=== PATIENT | female | born 1935 | race Caucasian/White ===

== ENCOUNTER 2016-05-03 19:31 | Emergency (ER) | payer OTHER ==
[~2016-05-03] VITALS: Ht 139.7 cm; Wt 78.1 kg
[~2016-05-03 19:31] MED LIST: ACCOLATE PO; ACETAMINOPHEN-1 EAC1 PO; ACETAMINOPHEN325 M1 PO; ACID REDUCER; ACID REDUCER75 MG PO; ADULT LOW DOSE81 M1 PO; ADVAIR 100/501 DISK IH; ADVAIR 250/501 DISK IH; ADVAIR 500/501 DISK IH; ADVIL,NUPRIN,M200 MG PO; ALBUTEROL0.63 MG/3 IH; ALPRAZOLAM0.5 MG PO; ALPRAZOLAM1 MG PO; AMERGE2.5 MG PO; AMOXICILLIN125 MG; ANALGESIC325 MG PO; ANTIBIOTIC PO; ANTIVERT25 MG PO; ARTIFICIAL TEAR15 M1 BOTH EYES; ASACOL400 MG PO; ASCORBIC ACID250 MG PO; ASPIR 8181 M1 PO; ASPIR-LOW81 M1 PO; ASPIR-LOW81 MG PO; ASPIR-TRIN325 M1 PO; ASPIRIN E.C.81 M1 PO; ASPIRIN325 MG PO; ASPIRIN81 M2 PO; ATORVASTATIN CA40 MG PO; AUGMENTIN875 MG PO; Advair 250/50 Diskus IH; Advair HFA 115/21 IH; Antivert PO; Aspirin PO; BACLOFEN10 MG PO; BACTRIM,SEPT1 TABLET PO; BACTROBAN CREAM15 GM TP; BENADRYL25 MG PO; BENTYL10 MG PO; BISACODYL SUPP10 MG PR; BISACODYL5 MG PO; Benadryl PO; CALCIUM + D; CALCIUM + VITA1 EACH PO; CALCIUM 500 +1 EACH PO; CALCIUM 600 +1 EA10 PO; CALCIUM 600 +1 EA15 PO; CALCIUM 600 +1 EAC1 PO; CALCIUM 600 +1 EAC2 PO; CALCIUM 600 +1 EAC7 PO; CALCIUM 600 +1 EAC9 PO; CALCIUM 600 MG1 EAC1 PO; CALCIUM 600+D31 EACH PO; CALCIUM500 M4 PO; CALCIUM500 M5 PO; CEFDINIR300 MG PO; CELEXA40 MG PO; CENTRUM SILVER1 EAC3 PO; CENTURY TABLET1 EACH PO; CEPHALEXIN500 MG PO; CETIRIZINE HCL10 M2 PO; CIPRODEX OTIC7.5 ML OT; CITALOPRAM HBR20 MG PO; CITALOPRAM HBR40 M1 PO; CITRUCEL500 MG PO; CLEARLAX17 GM PO; CLONAZEPAM0.5 MG PO; CLONAZEPAM1 MG PO; COLACE100 MG PO; COLESTID1 GM PO; COLESTIPOL HCL1 GM PO; COUGH CONT100 MG/5 M PO; COUMADIN1 MG PO; CRESTOR10 MG PO; Colace PO; DICLOFENAC POTA50 MG PO; DICLOFENAC SOD100 MG PO; DICLOFENAC SODI50 MG PO; DICLOFENAC SODI75 MG PO; DILAUDID2 MG PO; DOCUSATE SODIU100 MG PO; DRAMAMINE II PO; DULCOLAX10 MG PR; DYAZIDE, MA1 CAPSULE PO; Dilaudid PO; Dulcolax PR; Dyazide, Maxzide 37. PO; EAR SYSTEM15 ML BOTH EARS; EMLA 30 GM30 GM TP; EYE DROP15 ML BOTH EYES; Ecotrin PO; FERROUS SULFAT325 MG PO; FLEET MINERAL133 ML PR; FLEXERIL5 MG PO; FLORASTOR250 MG PO; FLUOXETINE HCL40 MG PO; FOOT CREAM TP; FUROSEMIDE20 MG PO; Feosol PO; GLUCOSAMINE CH1 EACH PO; HYCODAN SYRUP5 ML PO; HYDROCHLOROTHIA25 MG PO; HYDROCODON-ACE1 EAC7 PO; HYDROCODONE; INCRUSE ELLI62.5 MCG IH; IRON; IRON PO; IRON325 M1 PO; IRON325 MG PO; K-DUR20 MEQ PO; K-Dur PO; KEFLEX500 MG PO; KLONOPIN0.5 M1 PO; KLONOPIN2 MG PO; KLOR-CON M2020 MEQ PO; KONSYL0.52 GM PO; KlonoPIN PO; Klonopin PO; LASIX20 MG PO; LIDOCAINE-HC 3-11 GM PR; LIDOCAINE700 MG TD; LIDODERM 5% P1 PATCH TD; LIVIXIL PAK 2.1 EACH TP; LOPRESSOR25 MG PO; LOVENOX40 MG/0.4 SC; LYRICA100 MG PO; LYRICA225 MG PO; LYRICA75 MG PO; Lopressor PO; MAXZIDE 37.5 M1 EACH PO; MECLIZINE HCL12.5 M1 PO; MECLIZINE HCL25 MG PO; METAMUCIL FIBE3.4 GM PO; METAMUCIL PACKE1 PKT PO; METOPROLOL PO; METOPROLOL TART25 MG PO; MILK OF MAGN PO; MIRALAX255 GM PO; MONTELUKAST SOD10 MG PO; MUCINEX600 MG PO; MULTIVITAMIN1 EAC1 PO; MULTIVITAMIN1 EAC2 PO; MYSOLINE50 M1 PO; MYSOLINE50 M2 PO; MYSOLINE50 MG PO; Maalox, Mylanta PO; Maxzide 25 PO; Mysoline PO; NAPROSYN500 MG PO; NASOGEL SALIN28.4 ML NS; NIFEDICAL XL30 MG PO; NIFEDIPINE ER30 MG PO; NITROSTAT0.4 MG SL; NORVASC10 MG PO; Neurontin PO; Norvasc PO; OMEPRAZOLE40 M1 PO; ONE-A-DAY ESSE1 EAC1 PO; Ocean Nasal 0.65% BOTH NARES; Oscal 500 w/Vitamin PO; Oyst-Cal D, Oscal W/ PO; PANTOPRAZOLE SO40 MG PO; PHILLIPS'400 MG/5 M PO; PREDNISONE PO; PREDNISONE20 MG PO; PRIMIDONE50 MG PO; PROAIR HFA8.5 GM IH; PROAIR IH; PROBIOTIC1 EAC2 PO; PROCARDIA XL30 MG PO; PROTONIX40 MG PO; PROVENTIL,2.5 MG/3 M IH; PROZAC20 MG PO; PROZAC40 MG PO; PROzac PO; PULMICORT0.5 MG/21 IH; Pepcid PO; Pravachol PO; Protonix PO; Proventil,Ventolin H IH; Prozac PO; RANITIDINE HCL300 MG PO; RANITIDINE HCL75 MG PO; REFRESH OPTIVE10 ML BOTH EYES; REQUIP1 MG PO; REQUIP2 MG PO; REQUIP4 MG PO; ROBITUSSIN DM118 ML PO; ROPINIROLE HCL1 MG PO; Requip PO; SENNA S TABLET1 EACH PO; SENNA-TIME S T1 EACH PO; SENNA8.6 MG PO; SIMVASTATIN40 MG PO; SINGULAIR10 MG PO; SKELAXIN400 M1 PO; SPIRIVA1 INHALATI IH; ST. JOSEPH ASPI81 MG PO; STOOL SOFTENER100 M1 PO; STOOL SOFTENER100 MG PO; STOOL SOFTNER; Senokot S,Pericolace PO; TETRAHYDROZOLINE BOTH EYES; THERAGRAN1 TABLET PO; TOPAMAX25 MG PO; TORADOL 15 MG/ML PO; TRAMADOL HCL50 MG PO; TRIAMTERENE-HC1 EAC1 PO; TRIAMTERENE-HC1 EACH PO; TYLENOL REGULA325 MG PO; TYLENOL WITH C1 EACH PO; Tessalon Perle PO; Theragran-M,Centrum, PO; Toprol XL PO; Tylenol Regular Stre PO; Tylenol/Codeine #3 PO; ULTRAM50 MG PO; VALIUM2 MG PO; VALIUM5 MG PO; VICODIN 5-3001 EACH PO; VICODIN,LORT1 TABLET PO; VITAMIN C250 MG PO; VITAMIN C500 M1 PO; VITAMIN D-32000 UNI2 PO; VITAMIN D2000 INTUN PO; VITAMIN D22000 UNIT PO; VITAMIN D31000 UNI2 PO; VOLTAREN 1% GE100 GM TP; VOLTAREN-XR100 MG PO; VOLTAREN75 MG PO; Vitamin B-12 PO; Voltaren XR PO; XANAX0.5 MG PO; XOPENEX; XOPENEX0.63 MG/3 IH; XOPENEX1.25 MG/0. IH; XOPENEX1.25 MG/3 IH; Xanax PO; ZOCOR40 MG PO; ZOFRAN4 MG PO; ZYRTEC10 M3 PO; Zocor PO; [UNRECOGNIZED DRUG - OTHER]; [UNRECOGNIZED DRUG - OTHER]; [UNRECOGNIZED DRUG - REMARK]; celeXA PO; iron PO
[2016-05-03] MEDS ORDERED: CYMBALTA20 MG PO (22:00)
[2016-05-03] MEDS ORDERED: METAMUCIL0.52 GM PO (22:01)
[2016-05-03] MEDS ORDERED: GUAIFENESIN400 MG PO (22:03)
[2016-05-03] MEDS ORDERED: PROVENTIL,2.5 MG/3 M IH (22:06)
[2016-05-03] MEDS ORDERED: ALBUTEROL0.63 MG/3 IH (22:07)
[2016-05-03] MEDS ORDERED: TESSALON PERLE100 MG PO (22:10)
[2016-05-04 00:34] VITALS: BP 152/83
== END 2016-05-04 00:37 ==
LOC: EME → EDBD 19:31 → EME 19:31
PROC: 0HQGXZZ Repair Left Hand Skin, External Approach (ICD-10-PCS; principal; 2016-05-04)
DX: S61.211A Laceration without foreign body of left index finger without damage to nail, initial encounter (principal); W19.XXXA Unspecified fall, initial encounter; Y92.129 Unspecified place in nursing home as the place of occurrence of the external cause; B02.9 Zoster without complications; G89.29 Other chronic pain; I10 Essential (primary) hypertension; J44.9 Chronic obstructive pulmonary disease, unspecified; J45.909 Unspecified asthma, uncomplicated; Z79.82 Long term (current) use of aspirin; Z79.891 Long term (current) use of opiate analgesic
CPT/HCPCS: 71020; 99281; 99285

== ENCOUNTER 2017-01-15 09:59 | Inpatient (IN) | payer OTHER ==
[~2017-01-15] VITALS: Ht 142.2 cm; Wt 78.9 kg
[~2017-01-15 09:59] MED LIST changes: +CYMBALTA60 MG PO; +GUAIFENESIN400 MG PO; -LYRICA100 MG PO; +LYRICA150 MG PO; +METAMUCIL0.52 GM PO; +TESSALON PERLE100 MG PO
[2017-01-15 11:17] LABS: EOSINOPHIL COUNT 0.3 K/uL (0-0.3); IMMATURE GRANULOCYTE (%) 0.1 % (0.0-0.7); INSTRUMENT ABS NEUTROPHIL CT 4.3 K/uL; LYMPHOCYTE COUNT 1.4 K/uL (1.0-2.8); MCH 28.4 PG (29.0-34.0); MCV 91.9 FL (83-99); MEAN PLAT.VOLUME 10.5 uM^3 (9.5-12.4); MONOCYTE (%) 10.9 % (3-12); MONOCYTE COUNT 0.7 K/uL (0-0.8); NEUTROPHIL (%) 63.9 % (45-76); NEUTROPHIL COUNT 4.3 K/uL (1.8-6.4); PLATELET COUNT 166 K/uL (156-360); RBC DIS.WIDTH-CV 13.7 % (11.8-14.6); RBC DIS.WIDTH-SD 46.3 % (39-53); RED BLOOD COUNT 4.57 M/uL (3.80-5.20); WHITE BLOOD COUNT 6.8 K/uL (4.1-10.2)
[2017-01-15 11:26] LABS: CHLORIDE 102 mEq/L (99-109); POTASSIUM 4.2 mEq/L (3.7-5.4); SODIUM 141 mEq/L (136-147)
[2017-01-15 11:28] LABS: GLUCOSE 105 mg/dL (70-99)
[2017-01-15 11:29] LABS: ANION GAP 8 MEQ/L (2-14)
[2017-01-15 11:30] LABS: TOTAL BILIRUBIN 0.4 mg/dL (0.0-1.0)
[2017-01-15 11:31] LABS: ALKALINE PHOSPHATASE 95 IU/L (3-129)
[2017-01-15 11:32] LABS: GFR ESTIMATE (CALCULATED) 56 mL/min/
[2017-01-15 11:33] LABS: UREA NITROGEN (BUN) 22 mg/dL (9-23)
[2017-01-15 11:35] LABS: LIPASE 13 U/L (1.0-51.0)
[2017-01-15 11:48] LABS: ADD MIUA? YES; BILIRUBIN NEGATIVE; BLOOD NEGATIVE; COLOR STRAW ((YELLOW)); GLUCOSE (STRIP) NEGATIVE; KETONES NEGATIVE; LEUKOCYTES TRACE; NITRITE NEGATIVE; PROTEIN (STRIP) NEGATIVE; SPECIFIC GRAVITY 1.006 (1.000-1.030); UROBILINOGEN 0.2 MG/DL (0.2-1.0)
[2017-01-15 11:54] LABS: TROP-I INTERPRETATION NEGATIVE; TROPONIN-I 0.01 ng/mL (0.0-0.30)
[2017-01-15 11:55] LABS: BACTERIA NONE SEEN /HPF; EPITHELIAL CELLS NONE SEEN /HPF; HYALINE CASTS 0-5 /LPF; MUCUS NONE SEEN /LPF; RED BLOOD CELLS 0-5 /HPF (0-5); UCUL ADDED? NO; WHITE BLOOD CELLS 0-5 /HPF (0-5)
[2017-01-15] MEDS ORDERED: LASIX20 MG PO (14:58)
[2017-01-15] MEDS ORDERED: PROTONIX40 MG PO (14:59)
[2017-01-15] MEDS ORDERED: SINGULAIR10 MG PO (14:59)
[2017-01-15] MEDS ORDERED: CYANOCOBALAM1000 MCG PO (15:00)
[2017-01-15] MEDS ORDERED: ADVAIR 250/501 DISK IH (15:00)
[2017-01-15] MEDS ORDERED: AUGMENTIN875 MG PO (15:01)
[2017-01-15] MEDS ORDERED: BIOFREEZE TP (15:02)
[2017-01-15] MEDS ORDERED: ANUSOL-HC21 GM PR (15:06)
[2017-01-15 17:54] VITALS: BP 148/65
[2017-01-16] VITALS (7 sets, daily range): BP systolic 123–156; BP diastolic 56–78
[2017-01-16 20:49] LABS: INFLUENZA A VIRAL ANTIGEN NEGATIVE; INFLUENZA B VIRAL ANTIGEN NEGATIVE
[2017-01-17 03:27] VITALS: BP 136/61
[2017-01-17 05:51] LABS: EOSINOPHIL (%) 7.8 % (0-5); EOSINOPHIL COUNT 0.3 K/uL (0-0.3); HEMATOCRIT 38.1 % (36.0-46.0); IMMATURE GRANULOCYTE (%) 0.3 % (0.0-0.7); INSTRUMENT ABS NEUTROPHIL CT 1.9 K/uL; MCHC 30.4 G/DL (30.0-36.0); MCV 91.8 FL (83-99); MEAN PLAT.VOLUME 10.3 uM^3 (9.5-12.4); MONOCYTE (%) 12.3 % (3-12); MONOCYTE COUNT 0.4 K/uL (0-0.8); NEUTROPHIL (%) 52.1 % (45-76); NEUTROPHIL COUNT 1.9 K/uL (1.8-6.4); PLATELET COUNT 149 K/uL (156-360); RBC DIS.WIDTH-CV 13.3 % (11.8-14.6); RBC DIS.WIDTH-SD 45.2 % (39-53); RED BLOOD COUNT 4.15 M/uL (3.80-5.20); WHITE BLOOD COUNT 3.6 K/uL (4.1-10.2)
[2017-01-17 06:14] LABS: ALKALINE PHOSPHATASE 76 IU/L (3-129); ANION GAP 7 MEQ/L (2-14); CHLORIDE 105 MEQ/L (99-109); GFR ESTIMATE (CALCULATED) > 59 mL/min/; GLUCOSE 80 mg/dL (70-99); SAMPLE HEMOLYSIS CHECK 0; SAMPLE ICTERIC CHECK 0; SAMPLE LIPEMIA CHECK 0; SODIUM 141 MEQ/L (136-147); TOTAL BILIRUBIN 0.5 MG/DL (0.0-1.0); UREA NITROGEN (BUN) 14 mg/dL (9-23)
[2017-01-17 07:17] VITALS: BP 115/58
[2017-01-17 15:59] VITALS: BP 129/68
== END 2017-01-17 15:58 | DRG 189 ==
LOC: EME 09:59 → ENRESERV 14:31 → EDOF 14:38 → 2EAST 14:38 → EDOF 14:38 → ENRESERV 15:48 → 2EAST 17:10
PROVIDERS: Emergency Medicine; Hospitalist
PROC: 0DB68ZX Excision of Stomach, Via Natural or Artificial Opening Endoscopic, Diagnostic (ICD-10-PCS; principal; 2017-01-16)
DX: J96.01 Acute respiratory failure with hypoxia (principal); J44.1 Chronic obstructive pulmonary disease with (acute) exacerbation; K22.0 Achalasia of cardia; K21.9 Gastro-esophageal reflux disease without esophagitis; K22.8 Other specified diseases of esophagus; K25.7 Chronic gastric ulcer without hemorrhage or perforation; K29.70 Gastritis, unspecified, without bleeding; K59.00 Constipation, unspecified; R13.10 Dysphagia, unspecified; I10 Essential (primary) hypertension; I25.10 Atherosclerotic heart disease of native coronary artery without angina pectoris; G43.909 Migraine, unspecified, not intractable, without status migrainosus; G47.33 Obstructive sleep apnea (adult) (pediatric); M81.0 Age-related osteoporosis without current pathological fracture; G25.81 Restless legs syndrome; E78.5 Hyperlipidemia, unspecified; M19.90 Unspecified osteoarthritis, unspecified site; F32.9 Major depressive disorder, single episode, unspecified; F41.0 Panic disorder [episodic paroxysmal anxiety]; E66.9 Obesity, unspecified; Z68.38 Body mass index [BMI] 38.0-38.9, adult; Z82.3 Family history of stroke; Z82.49 Family history of ischemic heart disease and other diseases of the circulatory system; Z86.73 Personal history of transient ischemic attack (TIA), and cerebral infarction without residual deficits; Z87.11 Personal history of peptic ulcer disease; Z95.5 Presence of coronary angioplasty implant and graft; Z96.611 Presence of right artificial shoulder joint; Z96.651 Presence of right artificial knee joint
CPT/HCPCS: 71020; 74020; 74220; 80053; 81003; 83690; 84484; 85025; 87502; 88305; 88342 TC; 93005; 94640 76; 94760; 94799; 99202; 99281; 99284; C9113; G0378; J1650; J7030

== ENCOUNTER 2017-02-09 17:29 | Emergency (ER) | payer OTHER ==
[~2017-02-09] VITALS: Ht 139.7 cm; Wt 76.0 kg
[~2017-02-09 17:29] MED LIST changes: +ANUSOL-HC21 GM PR; +BIOFREEZE TP; +CYANOCOBALAM1000 MCG PO
[2017-02-09 20:39] VITALS: BP 125/49
== END 2017-02-09 20:57 ==
LOC: EME 17:29
DX: S00.03XA Contusion of scalp, initial encounter (principal); M80.08XA Age-related osteoporosis with current pathological fracture, vertebra(e), initial encounter for fracture; M25.551 Pain in right hip; W07.XXXA Fall from chair, initial encounter; K21.9 Gastro-esophageal reflux disease without esophagitis; J44.9 Chronic obstructive pulmonary disease, unspecified; G47.33 Obstructive sleep apnea (adult) (pediatric); E78.5 Hyperlipidemia, unspecified; I10 Essential (primary) hypertension; G25.81 Restless legs syndrome; F41.9 Anxiety disorder, unspecified; F32.9 Major depressive disorder, single episode, unspecified; I25.2 Old myocardial infarction; Z95.5 Presence of coronary angioplasty implant and graft; Z86.73 Personal history of transient ischemic attack (TIA), and cerebral infarction without residual deficits; Z96.651 Presence of right artificial knee joint; Z96.611 Presence of right artificial shoulder joint; Z88.8 Allergy status to other drugs, medicaments and biological substances
CPT/HCPCS: 70450; 72125; 72128; 72131; 73502; 93005; 99281; 99284

== ENCOUNTER → 2017-04-30 | Outpatient (CLI) | payer OTHER ==
[~2017-04-30] VITALS: Ht 139.7 cm; Wt 77.1 kg
[~2017-04-30] MED LIST changes: +BREO ELLIPTA I1 EACH IH; +LYRICA100 MG PO; -LYRICA150 MG PO
== END ==
LOC: AMB 06:54
PROC: 0DB68ZX Excision of Stomach, Via Natural or Artificial Opening Endoscopic, Diagnostic (ICD-10-PCS; principal; 2017-04-30)
DX: K25.9 Gastric ulcer, unspecified as acute or chronic, without hemorrhage or perforation (principal); K22.4 Dyskinesia of esophagus; R13.10 Dysphagia, unspecified; K59.00 Constipation, unspecified; D64.9 Anemia, unspecified; I10 Essential (primary) hypertension; J44.9 Chronic obstructive pulmonary disease, unspecified; G47.30 Sleep apnea, unspecified; E78.5 Hyperlipidemia, unspecified; M19.90 Unspecified osteoarthritis, unspecified site; Z86.73 Personal history of transient ischemic attack (TIA), and cerebral infarction without residual deficits; Z91.030 Bee allergy status; Z88.1 Allergy status to other antibiotic agents; Z88.5 Allergy status to narcotic agent; Z82.49 Family history of ischemic heart disease and other diseases of the circulatory system
CPT/HCPCS: 88305; 88342 TC

== ENCOUNTER 2017-06-22 12:55 | Emergency (ER) | payer OTHER ==
[~2017-06-22] VITALS: Ht 139.7 cm; Wt 80.6 kg
[2017-06-22 14:34] LABS: BASOPHIL (%) 0.1 % (0-1); EOSINOPHIL (%) 1.6 % (0-5); EOSINOPHIL COUNT 0.1 K/uL (0-0.3); HEMATOCRIT 39.3 % (36.0-46.0); HEMOGLOBIN 12.3 G/DL (11.9-15.5); IMMATURE GRANULOCYTE (%) 0.2 % (0.0-0.7); LYMPHOCYTE (%) 13.6 % (15-42); LYMPHOCYTE COUNT 1.1 K/uL (1.0-2.8); MCH 29.4 PG (29.0-34.0); MCHC 31.3 G/DL (30.0-36.0); MONOCYTE (%) 7.2 % (3-12); MONOCYTE COUNT 0.6 K/uL (0-0.8); NEUTROPHIL (%) 77.3 % (45-76); NEUTROPHIL COUNT 6.3 K/uL (1.8-6.4); PLATELET COUNT 163 K/uL (156-360); RBC DIS.WIDTH-CV 14.1 % (11.8-14.6); RBC DIS.WIDTH-SD 48.3 % (39-53); RED BLOOD COUNT 4.18 M/uL (3.80-5.20); WHITE BLOOD COUNT 8.2 K/uL (4.1-10.2)
[2017-06-22 14:45] LABS: CHLORIDE 102 mEq/L (99-109); POTASSIUM 3.7 mEq/L (3.7-5.4); SODIUM 141 mEq/L (136-147)
[2017-06-22 14:46] LABS: MAGNESIUM 1.7 mg/dL (1.3-2.7)
[2017-06-22 14:47] LABS: GLUCOSE 95 mg/dL (70-99)
[2017-06-22 14:50] LABS: CREATININE 0.8 mg/dL (0.6-1.3); GFR ESTIMATE (CALCULATED) > 59 mL/min/; PTT 30.1 SEC (25-37)
[2017-06-22 14:51] LABS: UREA NITROGEN (BUN) 15 mg/dL (9-23)
[2017-06-22 14:58] LABS: TROP-I INTERPRETATION NEGATIVE; TROPONIN-I 0.02 ng/mL (0.0-0.30)
[2017-06-22 16:51] VITALS: BP 103/51
== END 2017-06-22 16:52 ==
LOC: EME 12:55
PROVIDERS: Emergency Medicine
DX: J44.9 Chronic obstructive pulmonary disease, unspecified (principal); R53.1 Weakness; G47.33 Obstructive sleep apnea (adult) (pediatric); E78.5 Hyperlipidemia, unspecified; G25.81 Restless legs syndrome; F32.9 Major depressive disorder, single episode, unspecified; I25.2 Old myocardial infarction; Z95.5 Presence of coronary angioplasty implant and graft; Z86.73 Personal history of transient ischemic attack (TIA), and cerebral infarction without residual deficits; Z96.651 Presence of right artificial knee joint; Z96.611 Presence of right artificial shoulder joint; Z90.710 Acquired absence of both cervix and uterus; Z88.1 Allergy status to other antibiotic agents; Z88.5 Allergy status to narcotic agent; Z88.8 Allergy status to other drugs, medicaments and biological substances
CPT/HCPCS: 71045; 80048; 83735; 84484; 85025; 85610; 85730; 93005; 94640; 94799; 99281; 99284

== ENCOUNTER 2017-07-01 10:08 | Inpatient (IN) | payer OTHER ==
[~2017-07-01] VITALS: Ht 139.7 cm; Wt 80.0 kg
[2017-07-01] MEDS ORDERED: KONSYL1 EACH PO (13:26)
[2017-07-01 15:39] LABS: HEMATOCRIT 38.1 % (36.0-46.0); HEMOGLOBIN 12.1 G/DL (11.9-15.5); MCHC 31.8 G/DL (30.0-36.0); MCV 94.5 FL (83-99); PLATELET COUNT 122 K/uL (156-360); RBC DIS.WIDTH-CV 14.2 % (11.8-14.6); RBC DIS.WIDTH-SD 49.1 % (39-53); RED BLOOD COUNT 4.03 M/uL (3.80-5.20); WHITE BLOOD COUNT 5.7 K/uL (4.1-10.2)
[2017-07-01 15:48] LABS: CHLORIDE 98 mEq/L (99-109); POTASSIUM 4.7 mEq/L (3.7-5.4); SODIUM 142 mEq/L (136-147)
[2017-07-01 15:50] LABS: GLUCOSE 141 mg/dL (70-99)
[2017-07-01 15:54] LABS: CREATININE 0.9 mg/dL (0.6-1.3); GFR ESTIMATE (CALCULATED) > 59 mL/min/
[2017-07-01 15:55] LABS: UREA NITROGEN (BUN) 14 mg/dL (9-23)
[2017-07-01 16:55] LABS: APPEARANCE CLEAR ((CLEAR)); BILIRUBIN NEGATIVE; BLOOD NEGATIVE; COLOR STRAW ((YELLOW)); GLUCOSE (STRIP) NEGATIVE; KETONES NEGATIVE; LEUKOCYTES NEGATIVE; NITRITE NEGATIVE; PROTEIN (STRIP) NEGATIVE; SPECIFIC GRAVITY 1.005 (1.000-1.030); UROBILINOGEN 0.2 MG/DL (0.2-1.0)
[2017-07-01 19:52] LABS: PTT 30.4 SEC (25-37)
[2017-07-02] VITALS (7 sets, daily range): BP systolic 124–187; BP diastolic 52–79
[2017-07-03 04:18] VITALS: BP 98/62
[2017-07-03 05:31] LABS: BASOPHIL (%) 0 % (0-1); EOSINOPHIL (%) 0 % (0-5); HEMOGLOBIN 11.2 G/DL (11.9-15.5); IMMATURE GRANULOCYTE (%) 0.4 % (0.0-0.7); LYMPHOCYTE (%) 11.3 % (15-42); LYMPHOCYTE COUNT 0.6 K/uL (1.0-2.8); MCH 28.7 PG (29.0-34.0); MCHC 30.3 G/DL (30.0-36.0); MCV 94.9 FL (83-99); MONOCYTE (%) 6.8 % (3-12); MONOCYTE COUNT 0.4 K/uL (0-0.8); NEUTROPHIL (%) 81.5 % (45-76); NEUTROPHIL COUNT 4.4 K/uL (1.8-6.4); PLATELET COUNT 123 K/uL (156-360); RBC DIS.WIDTH-CV 13.8 % (11.8-14.6); RBC DIS.WIDTH-SD 47.9 % (39-53); WHITE BLOOD COUNT 5.3 K/uL (4.1-10.2)
[2017-07-03 05:59] LABS: CHLORIDE 103 MEQ/L (99-109); CREATININE 0.7 MG/DL (0.6-1.3); GFR ESTIMATE (CALCULATED) > 59 mL/min/; GLUCOSE 115 mg/dL (70-99); POTASSIUM 4.8 MEQ/L (3.7-5.4); SODIUM 140 MEQ/L (136-147); UREA NITROGEN (BUN) 12 mg/dL (9-23)
[2017-07-03 08:00] VITALS: BP 125/59
[2017-07-03 16:36] VITALS: BP 105/55
[2017-07-03 20:14] VITALS: BP 95/54
[2017-07-04 00:26] VITALS: BP 105/55
[2017-07-04 06:03] VITALS: BP 100/54
[2017-07-04 06:12] LABS: BASOPHIL (%) 0.2 % (0-1); EOSINOPHIL (%) 3.2 % (0-5); EOSINOPHIL COUNT 0.2 K/uL (0-0.3); HEMATOCRIT 32.2 % (36.0-46.0); HEMOGLOBIN 9.7 G/DL (11.9-15.5); IMMATURE GRANULOCYTE (%) 0.2 % (0.0-0.7); LYMPHOCYTE (%) 22.8 % (15-42); LYMPHOCYTE COUNT 1.3 K/uL (1.0-2.8); MCH 28.9 PG (29.0-34.0); MCHC 30.1 G/DL (30.0-36.0); MCV 95.8 FL (83-99); MONOCYTE (%) 11.5 % (3-12); MONOCYTE COUNT 0.6 K/uL (0-0.8); NEUTROPHIL (%) 62.1 % (45-76); NEUTROPHIL COUNT 3.5 K/uL (1.8-6.4); PLATELET COUNT 117 K/uL (156-360); RBC DIS.WIDTH-CV 14.3 % (11.8-14.6); RBC DIS.WIDTH-SD 50.4 % (39-53); RED BLOOD COUNT 3.36 M/uL (3.80-5.20); WHITE BLOOD COUNT 5.6 K/uL (4.1-10.2)
[2017-07-04 06:35] LABS: ALBUMIN 2.9 G/DL (3.2-4.8); ALKALINE PHOSPHATASE 57 IU/L (3-129); ALT (GPT) 3 IU/L (3-49); AST (GOT) 24 IU/L (2-34); CHLORIDE 102 MEQ/L (99-109); CREATININE 0.8 MG/DL (0.6-1.3); GFR ESTIMATE (CALCULATED) > 59 mL/min/; GLUCOSE 98 mg/dL (70-99); POTASSIUM 4.5 MEQ/L (3.7-5.4); SODIUM 139 MEQ/L (136-147); TOTAL BILIRUBIN 0.3 MG/DL (0.0-1.0); TOTAL PROTEIN 5.5 G/DL (6.4-8.3); UREA NITROGEN (BUN) 14 mg/dL (9-23)
[2017-07-04 08:08] VITALS: BP 144/63
[2017-07-04] MEDS ORDERED: HYDROCODON-ACE1 EAC7 PO (08:24)
[2017-07-04 16:10] VITALS: BP 79/51
[2017-07-04 16:36] VITALS: BP 104/60
[2017-07-04 23:35] VITALS: BP 127/57
[2017-07-05 06:24] LABS: BASOPHIL (%) 0 % (0-1); EOSINOPHIL (%) 4.6 % (0-5); EOSINOPHIL COUNT 0.2 K/uL (0-0.3); HEMATOCRIT 38.2 % (36.0-46.0); HEMOGLOBIN 11.5 G/DL (11.9-15.5); IMMATURE GRANULOCYTE (%) 0.2 % (0.0-0.7); LYMPHOCYTE (%) 24.8 % (15-42); LYMPHOCYTE COUNT 1.3 K/uL (1.0-2.8); MCH 29.1 PG (29.0-34.0); MCHC 30.1 G/DL (30.0-36.0); MCV 96.7 FL (83-99); MONOCYTE (%) 12.9 % (3-12); MONOCYTE COUNT 0.7 K/uL (0-0.8); NEUTROPHIL (%) 57.5 % (45-76); NEUTROPHIL COUNT 2.9 K/uL (1.8-6.4); RBC DIS.WIDTH-CV 14.2 % (11.8-14.6); RBC DIS.WIDTH-SD 50.5 % (39-53); RED BLOOD COUNT 3.95 M/uL (3.80-5.20)
[2017-07-05 06:48] LABS: CHLORIDE 102 MEQ/L (99-109); CREATININE 0.8 MG/DL (0.6-1.3); GFR ESTIMATE (CALCULATED) > 59 mL/min/; GLUCOSE 98 mg/dL (70-99); POTASSIUM 4.4 MEQ/L (3.7-5.4); SODIUM 143 MEQ/L (136-147); UREA NITROGEN (BUN) 12 mg/dL (9-23)
[2017-07-05 06:59] LABS: PLAT.SUFFICIENCY DECREASED; PLATELET CLUMPS PRESENT - PLATELET COUNTS APPEARS DECREASED
[2017-07-05 07:06] LABS: PLATELET COUNT UNABLE TO REPORT K/uL (156-360)
[2017-07-05 08:25] VITALS: BP 114/65
[2017-07-05 11:17] LABS: MAGNESIUM 1.7 mg/dl (1.3-2.7)
[2017-07-05 17:18] VITALS: BP 136/82
[2017-07-06 00:09] VITALS: BP 124/65
[2017-07-06 05:43] LABS: BASOPHIL (%) 0.2 % (0-1); EOSINOPHIL (%) 6.5 % (0-5); EOSINOPHIL COUNT 0.3 K/uL (0-0.3); HEMATOCRIT 32.1 % (36.0-46.0); IMMATURE GRANULOCYTE (%) 0.2 % (0.0-0.7); LYMPHOCYTE (%) 23.7 % (15-42); LYMPHOCYTE COUNT 1.1 K/uL (1.0-2.8); MCH 29.7 PG (29.0-34.0); MCHC 31.2 G/DL (30.0-36.0); MCV 95.3 FL (83-99); MONOCYTE (%) 13.4 % (3-12); MONOCYTE COUNT 0.6 K/uL (0-0.8); NEUTROPHIL COUNT 2.6 K/uL (1.8-6.4); NRBC (%) 0.6 /100 WBC (0-0); RBC DIS.WIDTH-CV 14.3 % (11.8-14.6); RED BLOOD COUNT 3.37 M/uL (3.80-5.20); WHITE BLOOD COUNT 4.6 K/uL (4.1-10.2)
[2017-07-06 06:09] LABS: PLATELET COUNT 102 K/uL (156-360)
[2017-07-06 06:40] LABS: ALBUMIN 2.9 G/DL (3.2-4.8); ALKALINE PHOSPHATASE 73 IU/L (3-129); AST (GOT) 18 IU/L (2-34); CHLORIDE 102 MEQ/L (99-109); CREATININE 0.7 MG/DL (0.6-1.3); GFR ESTIMATE (CALCULATED) > 59 mL/min/; GLUCOSE 100 mg/dL (70-99); POTASSIUM 4.4 MEQ/L (3.7-5.4); SODIUM 138 MEQ/L (136-147); TOTAL BILIRUBIN 0.3 MG/DL (0.0-1.0); TOTAL PROTEIN 5.1 G/DL (6.4-8.3); UREA NITROGEN (BUN) 13 mg/dL (9-23)
[2017-07-06 06:44] LABS: ALT (GPT) < 3 IU/L (3-49)
[2017-07-06 07:44] VITALS: BP 132/62; BP 170/80
[2017-07-06 16:47] VITALS: BP 95/62
[2017-07-06 23:43] VITALS: BP 123/66
[2017-07-07 05:51] LABS: BASOPHIL (%) 0.2 % (0-1); EOSINOPHIL COUNT 0.3 K/uL (0-0.3); HEMATOCRIT 32.5 % (36.0-46.0); HEMOGLOBIN 10.1 G/DL (11.9-15.5); IMMATURE GRANULOCYTE (%) 0.2 % (0.0-0.7); LYMPHOCYTE (%) 23.3 % (15-42); LYMPHOCYTE COUNT 1.1 K/uL (1.0-2.8); MCH 29.6 PG (29.0-34.0); MCHC 31.1 G/DL (30.0-36.0); MCV 95.3 FL (83-99); MONOCYTE (%) 9.9 % (3-12); MONOCYTE COUNT 0.5 K/uL (0-0.8); NEUTROPHIL (%) 59.4 % (45-76); NEUTROPHIL COUNT 2.9 K/uL (1.8-6.4); RBC DIS.WIDTH-CV 14.2 % (11.8-14.6); RED BLOOD COUNT 3.41 M/uL (3.80-5.20); WHITE BLOOD COUNT 4.8 K/uL (4.1-10.2)
[2017-07-07 05:55] LABS: PLATELET COUNT 140 K/uL (156-360)
[2017-07-07 06:35] LABS: ALKALINE PHOSPHATASE 63 IU/L (3-129); ALT (GPT) 3 IU/L (3-49); AST (GOT) 18 IU/L (2-34); CHLORIDE 100 MEQ/L (99-109); CREATININE 0.7 MG/DL (0.6-1.3); GFR ESTIMATE (CALCULATED) > 59 mL/min/; GLUCOSE 97 mg/dL (70-99); SODIUM 139 MEQ/L (136-147); TOTAL PROTEIN 5.7 G/DL (6.4-8.3); UREA NITROGEN (BUN) 12 mg/dL (9-23)
[2017-07-07 06:47] LABS: TOTAL BILIRUBIN 0.4 MG/DL (0.0-1.0)
[2017-07-07 08:44] VITALS: BP 119/77
[2017-07-07 15:54] VITALS: BP 101/58
== END 2017-07-07 17:34 | DRG 518 ==
LOC: EME 10:08 → EDOF 18:55 → 3EAST 18:55 → ENRESERV 18:57 → CANRESERV 19:25 → ENRESERV 19:58 → EDOF 07-02 00:30 → 3EAST 07-02 00:35
PROVIDERS: Emergency Medicine; Hospitalist; Internal Medicine
PROC: 00NX0ZZ Release Thoracic Spinal Cord, Open Approach (ICD-10-PCS; principal; 2017-07-02)
PROC: 5A09357 Assistance with Respiratory Ventilation, Less than 24 Consecutive Hours, Continuous Positive Airway Pressure (ICD-10-PCS; principal; 2017-07-02)
DX: S22.079A Unspecified fracture of T9-T10 vertebra, initial encounter for closed fracture (principal); J15.9 Unspecified bacterial pneumonia; J44.0 Chronic obstructive pulmonary disease with (acute) lower respiratory infection; I10 Essential (primary) hypertension; I25.10 Atherosclerotic heart disease of native coronary artery without angina pectoris; E78.5 Hyperlipidemia, unspecified; I08.0 Rheumatic disorders of both mitral and aortic valves; I27.20 Pulmonary hypertension, unspecified; K22.4 Dyskinesia of esophagus; J96.11 Chronic respiratory failure with hypoxia; D69.6 Thrombocytopenia, unspecified; G89.4 Chronic pain syndrome; Z96.651 Presence of right artificial knee joint; E66.9 Obesity, unspecified; Z68.41 Body mass index [BMI] 40.0-44.9, adult; K21.9 Gastro-esophageal reflux disease without esophagitis; R13.10 Dysphagia, unspecified; E87.2 Acidosis; L03.115 Cellulitis of right lower limb; Z86.73 Personal history of transient ischemic attack (TIA), and cerebral infarction without residual deficits; G47.33 Obstructive sleep apnea (adult) (pediatric); G43.909 Migraine, unspecified, not intractable, without status migrainosus; G95.20 Unspecified cord compression; M48.04 Spinal stenosis, thoracic region; M81.0 Age-related osteoporosis without current pathological fracture; R29.6 Repeated falls; Z95.5 Presence of coronary angioplasty implant and graft; Z96.611 Presence of right artificial shoulder joint
CPT/HCPCS: 71045; 71275; 72020; 76000; 80048; 80053; 81003; 83735; 85025; 85027; 85049; 85610; 85730; 88305; 88311; 93005; 93306; 93970; 94010; 94640; 94640 76; 94660; 94667; 94668; 94760; 94799; 97530 GP; 99202; 99281; 99285; C1755; J0690; J0692; J1170; J2250; J2405; J2543; J3370; J3480; J7030; J7050; S0020

== ENCOUNTER 2017-07-13 22:40 | Emergency (ER) | payer OTHER ==
[~2017-07-13] VITALS: Ht 137.2 cm; Wt 84.7 kg
[~2017-07-13 22:40] MED LIST changes: +KONSYL1 EACH PO
[2017-07-13 23:14] LABS: HEMATOCRIT 34.9 % (36.0-46.0); HEMOGLOBIN 10.8 G/DL (11.9-15.5); MCH 29.5 PG (29.0-34.0); MCHC 30.9 G/DL (30.0-36.0); MCV 95.4 FL (83-99); PLATELET COUNT 168 K/uL (156-360); RBC DIS.WIDTH-CV 14.1 % (11.8-14.6); RBC DIS.WIDTH-SD 49.8 % (39-53); RED BLOOD COUNT 3.66 M/uL (3.80-5.20)
[2017-07-13 23:22] LABS: CHLORIDE 101 mEq/L (99-109); POTASSIUM 4.3 mEq/L (3.7-5.4); SODIUM 141 mEq/L (136-147)
[2017-07-13 23:24] LABS: GLUCOSE 107 mg/dL (70-99)
[2017-07-13 23:27] LABS: CREATININE 0.9 mg/dL (0.6-1.3); GFR ESTIMATE (CALCULATED) > 59 mL/min/
[2017-07-13 23:28] LABS: UREA NITROGEN (BUN) 19 mg/dL (9-23)
[2017-07-13 23:34] LABS: TROP-I INTERPRETATION NEGATIVE; TROPONIN-I < 0.01 ng/mL (0.0-0.30)
[2017-07-13 23:36] LABS: ALBUMIN 3.4 g/dL (3.2-4.8)
[2017-07-13 23:39] LABS: TOTAL PROTEIN 6.5 g/dL (6.4-8.3)
[2017-07-13 23:40] LABS: TOTAL BILIRUBIN 0.3 mg/dL (0.0-1.0)
[2017-07-13 23:41] LABS: ALKALINE PHOSPHATASE 87 IU/L (3-129)
[2017-07-13 23:44] LABS: AST (GOT) 20 IU/L (2-34); DIRECT BILIRUBIN 0.1 mg/dL (0.0-0.3)
[2017-07-13 23:45] LABS: ALT (GPT) 6 IU/L (3-49)
[2017-07-14 02:22] LABS: APPEARANCE CLEAR ((CLEAR)); BILIRUBIN NEGATIVE; BLOOD NEGATIVE; COLOR YELLOW ((YELLOW)); GLUCOSE (STRIP) NEGATIVE; KETONES NEGATIVE; LEUKOCYTES NEGATIVE; NITRITE NEGATIVE; PROTEIN (STRIP) NEGATIVE; UCUL ADDED? NO; UROBILINOGEN 0.2 MG/DL (0.2-1.0)
[2017-07-14 03:48] VITALS: BP 124/75
== END 2017-07-14 03:48 | disposition home or self-care (01) ==
LOC: EME → EDBD 22:40 → EME 22:40
PROVIDERS: Emergency Medicine Emergency Medical Services
DX: R60.0 Localized edema (principal); I87.2 Venous insufficiency (chronic) (peripheral); B37.3 Candidiasis of vulva and vagina; N39.3 Stress incontinence (female) (male); Z87.81 Personal history of (healed) traumatic fracture; I49.1 Atrial premature depolarization; E78.5 Hyperlipidemia, unspecified; I25.2 Old myocardial infarction; J45.909 Unspecified asthma, uncomplicated; G25.81 Restless legs syndrome; G47.30 Sleep apnea, unspecified; F41.9 Anxiety disorder, unspecified; F32.9 Major depressive disorder, single episode, unspecified; F41.0 Panic disorder [episodic paroxysmal anxiety]; Z79.51 Long term (current) use of inhaled steroids; Z99.81 Dependence on supplemental oxygen; Z95.5 Presence of coronary angioplasty implant and graft; Z98.890 Other specified postprocedural states; Z98.49 Cataract extraction status, unspecified eye; Z86.73 Personal history of transient ischemic attack (TIA), and cerebral infarction without residual deficits; Z96.651 Presence of right artificial knee joint; Z96.611 Presence of right artificial shoulder joint; Z90.49 Acquired absence of other specified parts of digestive tract; Z90.710 Acquired absence of both cervix and uterus; Z88.5 Allergy status to narcotic agent; Z88.8 Allergy status to other drugs, medicaments and biological substances
CPT/HCPCS: 80048; 80076; 81003; 83735; 83880; 84484; 85027; 93005; 99281; 99285

== ENCOUNTER 2017-08-26 19:22 | Inpatient (IN) | payer OTHER ==
[~2017-08-26] VITALS: Ht 137.2 cm; Wt 84.1 kg
[2017-08-26 20:10] LABS: BASOPHIL (%) 0.2 % (0-1); EOSINOPHIL (%) 4.2 % (0-5); EOSINOPHIL COUNT 0.3 K/uL (0-0.3); HEMATOCRIT 33.7 % (36.0-46.0); HEMOGLOBIN 10.2 G/DL (11.9-15.5); IMMATURE GRANULOCYTE (%) 0.2 % (0.0-0.7); LYMPHOCYTE COUNT 1.3 K/uL (1.0-2.8); MCH 29.7 PG (29.0-34.0); MCHC 30.3 G/DL (30.0-36.0); MONOCYTE (%) 10.7 % (3-12); MONOCYTE COUNT 0.7 K/uL (0-0.8); NEUTROPHIL (%) 63.7 % (45-76); PLATELET COUNT 133 K/uL (156-360); RBC DIS.WIDTH-CV 14.4 % (11.8-14.6); RBC DIS.WIDTH-SD 51.8 % (39-53); RED BLOOD COUNT 3.44 M/uL (3.80-5.20); WHITE BLOOD COUNT 6.2 K/uL (4.1-10.2)
[2017-08-26 20:18] LABS: INTER. NORMALIZED RATIO 1.1
[2017-08-26 20:19] LABS: ALBUMIN 3.6 g/dL (3.2-4.8)
[2017-08-26 20:20] LABS: CHLORIDE 97 mEq/L (99-109); POTASSIUM 3.6 mEq/L (3.7-5.4); PTT 31.2 SEC (25-37); SODIUM 141 mEq/L (136-147)
[2017-08-26 20:22] LABS: GLUCOSE 110 mg/dL (70-99); TOTAL PROTEIN 6.5 g/dL (6.4-8.3)
[2017-08-26 20:24] LABS: TOTAL BILIRUBIN 0.4 mg/dL (0.0-1.0)
[2017-08-26 20:25] LABS: ALKALINE PHOSPHATASE 87 IU/L (3-129)
[2017-08-26 20:26] LABS: GFR ESTIMATE (CALCULATED) 56 mL/min/
[2017-08-26 20:27] LABS: AST (GOT) 23 IU/L (2-34); UREA NITROGEN (BUN) 20 mg/dL (9-23)
[2017-08-26 20:29] LABS: ALT (GPT) 10 IU/L (3-49)
[2017-08-26 22:15] LABS: HEMATOCRIT 33.8 % (36.0-46.0); HEMOGLOBIN 10.1 G/DL (11.9-15.5); MCV 99.7 FL (83-99)
[2017-08-26] MEDS ORDERED: ADULT ASPIRIN R81 MG PO (22:15)
[2017-08-26] MEDS ORDERED: ATORVASTATIN CA40 MG PO (22:16)
[2017-08-26] MEDS ORDERED: MIRALAX17 GM PO (22:18)
[2017-08-26] MEDS ORDERED: SALINE NOSE SPR45 M1 BOTH NARES (22:21)
[2017-08-26] MEDS ORDERED: BUSPAR10 MG PO (22:22)
[2017-08-26] MEDS ORDERED: ATARAX,VISTARIL25 MG PO (22:25)
[2017-08-27 02:40] VITALS: BP 134/94
[2017-08-27 03:03] LABS: HEMATOCRIT 36.7 % (36.0-46.0); HEMOGLOBIN 11.1 G/DL (11.9-15.5); MCH 29.9 PG (29.0-34.0); MCHC 30.2 G/DL (30.0-36.0); MCV 98.9 FL (83-99); RBC DIS.WIDTH-CV 14.4 % (11.8-14.6); RBC DIS.WIDTH-SD 52.3 % (39-53); RED BLOOD COUNT 3.71 M/uL (3.80-5.20); WHITE BLOOD COUNT 5.5 K/uL (4.1-10.2)
[2017-08-27 04:23] LABS: PLAT.SUFFICIENCY DECREASED
[2017-08-27 05:05] LABS: PLATELET COUNT UNABLE TO REPORT K/uL (156-360)
[2017-08-27 07:31] VITALS: BP 133/69
[2017-08-27 08:56] LABS: HEMATOCRIT 37.6 % (36.0-46.0); HEMOGLOBIN 10.9 G/DL (11.9-15.5); MCV 99.7 FL (83-99)
[2017-08-27 11:18] VITALS: BP 162/74
[2017-08-27 15:35] VITALS: BP 166/81
[2017-08-27 17:09] LABS: STOOL OCCULT BLD 1ST SPECIMEN NEGATIVE
[2017-08-27 19:10] VITALS: BP 130/73
[2017-08-27 20:01] LABS: HEMATOCRIT 32.9 % (36.0-46.0); HEMOGLOBIN 9.9 G/DL (11.9-15.5); MCV 99.1 FL (83-99)
[2017-08-27 22:48] VITALS: BP 124/83
[2017-08-28 03:45] VITALS: BP 154/81
[2017-08-28 06:14] LABS: CHLORIDE 103 MEQ/L (99-109); CREATININE 0.8 MG/DL (0.6-1.3); GFR ESTIMATE (CALCULATED) > 59 mL/min/; GLUCOSE 85 mg/dL (70-99); POTASSIUM 4.1 MEQ/L (3.7-5.4); SODIUM 143 MEQ/L (136-147); UREA NITROGEN (BUN) 15 mg/dL (9-23)
[2017-08-28 08:30] VITALS: BP 138/81
[2017-08-28 11:48] VITALS: BP 134/80
[2017-08-28 16:02] VITALS: BP 133/83
[2017-08-28 20:16] VITALS: BP 117/71
[2017-08-28 23:54] VITALS: BP 131/82
[2017-08-29 04:02] VITALS: BP 130/70
[2017-08-29 05:42] LABS: BASOPHIL (%) 0.2 % (0-1); EOSINOPHIL (%) 3.8 % (0-5); EOSINOPHIL COUNT 0.2 K/uL (0-0.3); HEMATOCRIT 36.4 % (36.0-46.0); HEMOGLOBIN 10.8 G/DL (11.9-15.5); IMMATURE GRANULOCYTE (%) 0.2 % (0.0-0.7); LYMPHOCYTE (%) 19.1 % (15-42); LYMPHOCYTE COUNT 1.1 K/uL (1.0-2.8); MCH 29.1 PG (29.0-34.0); MCHC 29.7 G/DL (30.0-36.0); MCV 98.1 FL (83-99); MONOCYTE (%) 9.7 % (3-12); MONOCYTE COUNT 0.5 K/uL (0-0.8); NEUTROPHIL COUNT 3.7 K/uL (1.8-6.4); RBC DIS.WIDTH-CV 13.9 % (11.8-14.6); RBC DIS.WIDTH-SD 50.4 % (39-53); RED BLOOD COUNT 3.71 M/uL (3.80-5.20); WHITE BLOOD COUNT 5.6 K/uL (4.1-10.2)
[2017-08-29 05:50] LABS: PLATELET COUNT 137 K/uL (156-360)
[2017-08-29 06:16] LABS: ALBUMIN 3.6 G/DL (3.2-4.8); ALKALINE PHOSPHATASE 74 IU/L (3-129); ALT (GPT) 9 IU/L (3-49); AST (GOT) 24 IU/L (2-34); CHLORIDE 102 MEQ/L (99-109); CREATININE 0.8 MG/DL (0.6-1.3); GFR ESTIMATE (CALCULATED) > 59 mL/min/; GLUCOSE 103 mg/dL (70-99); POTASSIUM 3.7 MEQ/L (3.7-5.4); SODIUM 142 MEQ/L (136-147); TOTAL BILIRUBIN 0.6 MG/DL (0.0-1.0); TOTAL PROTEIN 6.3 G/DL (6.4-8.3); UREA NITROGEN (BUN) 12 mg/dL (9-23)
[2017-08-29 07:12] VITALS: BP 129/92
[2017-08-29 09:18] LABS: BILIRUBIN NEGATIVE; BLOOD LARGE; GLUCOSE (STRIP) NEGATIVE; KETONES NEGATIVE; LEUKOCYTES NEGATIVE; NITRITE NEGATIVE; PROTEIN (STRIP) NEGATIVE; UROBILINOGEN 0.2 MG/DL (0.2-1.0)
[2017-08-29 09:19] LABS: APPEARANCE CLOUDY ((CLEAR)); COLOR LT.RED ((YELLOW))
[2017-08-29 09:41] LABS: BACTERIA NONE SEEN /HPF; MUCUS NONE SEEN /LPF; RED BLOOD CELLS TNTC /HPF (0-5); WHITE BLOOD CELLS 0-5 /HPF (0-5)
[2017-08-29 09:42] LABS: EPITHELIAL CELLS RARE /HPF
[2017-08-29 11:52] VITALS: BP 134/101
[2017-08-29 15:12] LABS: APPEARANCE CLEAR ((CLEAR)); BILIRUBIN NEGATIVE; BLOOD MODERATE; COLOR STRAW ((YELLOW)); GLUCOSE (STRIP) NEGATIVE; KETONES NEGATIVE; LEUKOCYTES NEGATIVE; NITRITE NEGATIVE; PROTEIN (STRIP) NEGATIVE; SPECIFIC GRAVITY 1.004 (1.000-1.030); UROBILINOGEN 0.2 MG/DL (0.2-1.0)
[2017-08-29 15:47] VITALS: BP 137/87
[2017-08-29 19:52] VITALS: BP 110/73
[2017-08-30 00:11] VITALS: BP 106/66
[2017-08-30 05:31] LABS: BASOPHIL (%) 0 % (0-1); EOSINOPHIL (%) 2.8 % (0-5); EOSINOPHIL COUNT 0.2 K/uL (0-0.3); HEMATOCRIT 34.7 % (36.0-46.0); HEMOGLOBIN 10.4 G/DL (11.9-15.5); IMMATURE GRANULOCYTE (%) 0.2 % (0.0-0.7); LYMPHOCYTE (%) 18.8 % (15-42); LYMPHOCYTE COUNT 1.2 K/uL (1.0-2.8); MCH 29.1 PG (29.0-34.0); MCV 97.2 FL (83-99); MONOCYTE (%) 12.2 % (3-12); MONOCYTE COUNT 0.8 K/uL (0-0.8); NEUTROPHIL COUNT 4.3 K/uL (1.8-6.4); PLATELET COUNT 114 K/uL (156-360); RBC DIS.WIDTH-CV 13.7 % (11.8-14.6); RBC DIS.WIDTH-SD 48.8 % (39-53); RED BLOOD COUNT 3.57 M/uL (3.80-5.20); WHITE BLOOD COUNT 6.5 K/uL (4.1-10.2)
[2017-08-30 05:56] LABS: ALKALINE PHOSPHATASE 59 IU/L (3-129); ALT (GPT) 8 IU/L (3-49); AST (GOT) 17 IU/L (2-34); CHLORIDE 102 MEQ/L (99-109); CREATININE 0.8 MG/DL (0.6-1.3); GFR ESTIMATE (CALCULATED) > 59 mL/min/; GLUCOSE 98 mg/dL (70-99); POTASSIUM 3.8 MEQ/L (3.7-5.4); SODIUM 146 MEQ/L (136-147); TOTAL BILIRUBIN 0.6 MG/DL (0.0-1.0); TOTAL PROTEIN 5.6 G/DL (6.4-8.3); UREA NITROGEN (BUN) 12 mg/dL (9-23)
[2017-08-30 07:56] VITALS: BP 146/70
[2017-08-30 11:30] VITALS: BP 149/60
[2017-08-30 17:03] VITALS: BP 148/77
[2017-08-30 21:05] VITALS: BP 131/61
[2017-08-30 23:41] VITALS: BP 116/76
[2017-08-31 04:43] VITALS: BP 122/59
[2017-08-31 05:10] LABS: HEMATOCRIT 34.2 % (36.0-46.0); HEMOGLOBIN 10.5 G/DL (11.9-15.5); MCH 29.6 PG (29.0-34.0); MCHC 30.7 G/DL (30.0-36.0); MCV 96.3 FL (83-99); PLATELET COUNT 110 K/uL (156-360); RBC DIS.WIDTH-CV 13.7 % (11.8-14.6); RBC DIS.WIDTH-SD 49.1 % (39-53); RED BLOOD COUNT 3.55 M/uL (3.80-5.20); WHITE BLOOD COUNT 5.6 K/uL (4.1-10.2)
[2017-08-31 05:38] LABS: CHLORIDE 101 MEQ/L (99-109); CREATININE 0.8 MG/DL (0.6-1.3); GFR ESTIMATE (CALCULATED) > 59 mL/min/; GLUCOSE 101 mg/dL (70-99); MAGNESIUM 1.6 mg/dl (1.3-2.7); POTASSIUM 3.4 MEQ/L (3.7-5.4); SODIUM 142 MEQ/L (136-147); UREA NITROGEN (BUN) 16 mg/dL (9-23)
[2017-08-31 09:00] VITALS: BP 148/85
[2017-08-31 12:05] VITALS: BP 140/66
[2017-08-31] MEDS ORDERED: SILVASORB TP (12:44)
[2017-08-31] MEDS ORDERED: COLACE100 MG PO (12:44)
[2017-08-31] MEDS ORDERED: LOPRESSOR50 MG PO (12:44)
== END 2017-08-31 15:59 | DRG 378 ==
LOC: EME 19:22 → EDOF 23:43 → 4SOUTH 23:43 → EDOF 23:43 → ENRESERV 23:47 → 4SOUTH 08-27 02:29
PROVIDERS: Emergency Medicine; Hospitalist; Internal Medicine; Urology
DX: K62.5 Hemorrhage of anus and rectum (principal); I48.91 Unspecified atrial fibrillation; J44.9 Chronic obstructive pulmonary disease, unspecified; E78.5 Hyperlipidemia, unspecified; Z86.73 Personal history of transient ischemic attack (TIA), and cerebral infarction without residual deficits; Z96.651 Presence of right artificial knee joint; E11.9 Type 2 diabetes mellitus without complications; Z99.81 Dependence on supplemental oxygen; E66.9 Obesity, unspecified; Z68.41 Body mass index [BMI] 40.0-44.9, adult; J96.10 Chronic respiratory failure, unspecified whether with hypoxia or hypercapnia; M19.90 Unspecified osteoarthritis, unspecified site; F41.9 Anxiety disorder, unspecified; G47.30 Sleep apnea, unspecified; I25.10 Atherosclerotic heart disease of native coronary artery without angina pectoris; K21.9 Gastro-esophageal reflux disease without esophagitis; G43.909 Migraine, unspecified, not intractable, without status migrainosus; Z95.5 Presence of coronary angioplasty implant and graft; I10 Essential (primary) hypertension; R31.0 Gross hematuria; I08.3 Combined rheumatic disorders of mitral, aortic and tricuspid valves; S91.302A Unspecified open wound, left foot, initial encounter; S91.301A Unspecified open wound, right foot, initial encounter; I95.9 Hypotension, unspecified; Z82.3 Family history of stroke
CPT/HCPCS: 71045; 74177; 80048; 80053; 81003; 82272; 83735; 83880; 85014; 85018; 85025; 85025 91; 85027; 85610; 85730; 86850; 86900; 86901; 86920; 87177; 87329; 87493; 93005; 94640; 94640 76; 94799; 99202; 99281; 99285; C9113; G0378; J1160; J1940; J7030; J7040

== ENCOUNTER 2017-10-11 04:53 | Emergency (ER) | payer OTHER ==
[~2017-10-11] VITALS: Ht 137.2 cm; Wt 82.4 kg
[~2017-10-11 04:53] MED LIST changes: +ADULT ASPIRIN R81 MG PO; +ATARAX,VISTARIL25 MG PO; +BUSPAR10 MG PO; +COUGH SYRU100 MG/5 M PO; +LASIX40 MG PO; +LOPRESSOR50 MG PO; +MIRALAX17 GM PO; +SALINE NOSE SPR45 M1 BOTH NARES; +SILVASORB TP
[2017-10-11 08:14] LABS: BASOPHIL (%) 0.2 % (0-1); EOSINOPHIL (%) 3.4 % (0-5); EOSINOPHIL COUNT 0.2 K/uL (0-0.3); HEMATOCRIT 34.4 % (36.0-46.0); HEMOGLOBIN 10.6 G/DL (11.9-15.5); IMMATURE GRANULOCYTE (%) 0.2 % (0.0-0.7); LYMPHOCYTE (%) 20.5 % (15-42); LYMPHOCYTE COUNT 1.3 K/uL (1.0-2.8); MCH 30.1 PG (29.0-34.0); MCHC 30.8 G/DL (30.0-36.0); MCV 97.7 FL (83-99); MONOCYTE (%) 10.3 % (3-12); MONOCYTE COUNT 0.6 K/uL (0-0.8); NEUTROPHIL (%) 65.4 % (45-76); PLATELET COUNT 112 K/uL (156-360); RBC DIS.WIDTH-CV 14.6 % (11.8-14.6); RBC DIS.WIDTH-SD 52.4 % (39-53); RED BLOOD COUNT 3.52 M/uL (3.80-5.20); WHITE BLOOD COUNT 6.1 K/uL (4.1-10.2)
[2017-10-11 08:19] LABS: INTER. NORMALIZED RATIO 1.1
[2017-10-11 08:31] LABS: APPEARANCE CLEAR ((CLEAR)); BILIRUBIN NEGATIVE; BLOOD NEGATIVE; COLOR YELLOW ((YELLOW)); GLUCOSE (STRIP) NEGATIVE; KETONES NEGATIVE; LEUKOCYTES MODERATE; NITRITE NEGATIVE; PROTEIN (STRIP) NEGATIVE; SPECIFIC GRAVITY 1.019 (1.000-1.030); UROBILINOGEN 0.2 MG/DL (0.2-1.0)
[2017-10-11 08:35] LABS: BACTERIA RARE /HPF; EPITHELIAL CELLS RARE /HPF; HYALINE CASTS 0-5 /LPF; MUCUS TRACE /LPF; RED BLOOD CELLS 0-5 /HPF (0-5); WHITE BLOOD CELLS 15-20 /HPF (0-5)
[2017-10-11 08:44] LABS: CHLORIDE 102 MEQ/L (99-109); GFR ESTIMATE (CALCULATED) 56 mL/min/; GLUCOSE 102 mg/dL (70-99); SODIUM 143 MEQ/L (136-147); UREA NITROGEN (BUN) 20 mg/dL (9-23)
[2017-10-11 08:52] LABS: POTASSIUM 4.9 MEQ/L (3.7-5.4)
[2017-10-11 09:16] LABS: TROP-I INTERPRETATION NEGATIVE; TROPONIN-I 0.01 ng/mL (0.0-0.30)
[2017-10-11 14:21] VITALS: BP 145/84
[2017-10-11] MEDS ORDERED: BUSPAR10 MG PO ×2 (19:36→19:37)
[2017-10-11] MEDS ORDERED: BUSPAR5 MG PO (19:37)
[2017-10-11] MEDS ORDERED: COLACE100 MG PO ×2 (19:38→19:47)
[2017-10-11] MEDS ORDERED: INCRUSE ELLI62.5 MCG IH (19:40)
[2017-10-11] MEDS ORDERED: LOPRESSOR50 MG PO (19:42)
[2017-10-11] MEDS ORDERED: VOLTAREN 1% GE100 GM TP (19:46)
[2017-10-11] MEDS ORDERED: MIRALAX119 GM PO (19:49)
== END 2017-10-11 14:23 ==
LOC: EME → EDBD 04:53 → EME 04:53
PROVIDERS: Emergency Medicine
DX: M54.9 Dorsalgia, unspecified (principal); E78.5 Hyperlipidemia, unspecified; J45.909 Unspecified asthma, uncomplicated; G25.81 Restless legs syndrome; G47.33 Obstructive sleep apnea (adult) (pediatric); G43.909 Migraine, unspecified, not intractable, without status migrainosus; F32.9 Major depressive disorder, single episode, unspecified; F41.9 Anxiety disorder, unspecified; I25.2 Old myocardial infarction; Z79.82 Long term (current) use of aspirin; Z79.51 Long term (current) use of inhaled steroids; Z91.81 History of falling; Z87.39 Personal history of other diseases of the musculoskeletal system and connective tissue; Z96.611 Presence of right artificial shoulder joint; Z96.651 Presence of right artificial knee joint; Z95.5 Presence of coronary angioplasty implant and graft; Z86.73 Personal history of transient ischemic attack (TIA), and cerebral infarction without residual deficits; Z90.710 Acquired absence of both cervix and uterus; Z88.1 Allergy status to other antibiotic agents; Z88.5 Allergy status to narcotic agent
CPT/HCPCS: 71045; 71275; 72131; 73501; 73502; 80048; 81003; 84484; 85025; 85379; 85610; 93005; 99281; 99285; J1885

== ENCOUNTER 2017-10-11 18:27 | Inpatient (IN) | payer OTHER ==
[~2017-10-11] VITALS: Ht 137.2 cm; Wt 79.3 kg
[2017-10-11 19:05] LABS: BASOPHIL (%) 0.1 % (0-1); EOSINOPHIL (%) 1.7 % (0-5); EOSINOPHIL COUNT 0.1 K/uL (0-0.3); HEMATOCRIT 38.6 % (36.0-46.0); HEMOGLOBIN 11.7 G/DL (11.9-15.5); IMMATURE GRANULOCYTE (%) 0.4 % (0.0-0.7); LYMPHOCYTE (%) 9.1 % (15-42); LYMPHOCYTE COUNT 0.8 K/uL (1.0-2.8); MCH 30.1 PG (29.0-34.0); MCHC 30.3 G/DL (30.0-36.0); MCV 99.2 FL (83-99); MONOCYTE COUNT 0.5 K/uL (0-0.8); NEUTROPHIL (%) 82.7 % (45-76); PLATELET COUNT 133 K/uL (156-360); RBC DIS.WIDTH-CV 14.6 % (11.8-14.6); RBC DIS.WIDTH-SD 53.2 % (39-53); RED BLOOD COUNT 3.89 M/uL (3.80-5.20); WHITE BLOOD COUNT 8.5 K/uL (4.1-10.2)
[2017-10-11 19:10] LABS: INTER. NORMALIZED RATIO 1.1
[2017-10-11 19:16] LABS: CHLORIDE 102 mEq/L (99-109); SODIUM 144 mEq/L (136-147)
[2017-10-11 19:21] LABS: CREATININE 1.2 mg/dL (0.6-1.3); GFR ESTIMATE (CALCULATED) 45 mL/min/
[2017-10-11 19:22] LABS: UREA NITROGEN (BUN) 20 mg/dL (9-23)
[2017-10-11 19:25] LABS: TROP-I INTERPRETATION NEGATIVE; TROPONIN-I 0.07 ng/mL (0.0-0.30)
[2017-10-11 19:27] LABS: GLUCOSE 193 mg/dL (70-99)
[2017-10-11] MEDS ORDERED: BUSPAR10 MG PO ×2 (19:36→19:37)
[2017-10-11] MEDS ORDERED: BUSPAR5 MG PO (19:37)
[2017-10-11] MEDS ORDERED: COLACE100 MG PO ×2 (19:38→19:47)
[2017-10-11] MEDS ORDERED: INCRUSE ELLI62.5 MCG IH (19:40)
[2017-10-11] MEDS ORDERED: LOPRESSOR50 MG PO (19:42)
[2017-10-11] MEDS ORDERED: VOLTAREN 1% GE100 GM TP (19:46)
[2017-10-11] MEDS ORDERED: MIRALAX119 GM PO (19:49)
[2017-10-11 21:56] LABS: APPEARANCE CLEAR ((CLEAR)); BILIRUBIN NEGATIVE; BLOOD NEGATIVE; COLOR YELLOW ((YELLOW)); GLUCOSE (STRIP) NEGATIVE; KETONES NEGATIVE; LEUKOCYTES NEGATIVE; NITRITE NEGATIVE; PROTEIN (STRIP) NEGATIVE; SPECIFIC GRAVITY 1.029 (1.000-1.030); UCUL ADDED? NO; UROBILINOGEN 0.2 MG/DL (0.2-1.0)
[2017-10-11 22:06] LABS: ALBUMIN 3.7 g/dL (3.2-4.8)
[2017-10-11 22:08] LABS: TOTAL BILIRUBIN 0.5 mg/dL (0.0-1.0)
[2017-10-11 22:09] LABS: TOTAL PROTEIN 6.4 g/dL (6.4-8.3)
[2017-10-11 22:11] LABS: ALKALINE PHOSPHATASE 104 IU/L (3-129)
[2017-10-11 22:14] LABS: ALT (GPT) 21 IU/L (3-49); AST (GOT) 42 IU/L (2-34); DIRECT BILIRUBIN 0.3 mg/dL (0.0-0.3)
[2017-10-11 23:30] VITALS: BP 139/99
[2017-10-11 23:37] VITALS: BP 134/99
[2017-10-12] VITALS (50 sets, daily range): BP systolic 51–143; BP diastolic 30–126
[2017-10-12 00:13] LABS: BASE EXCESS 2.2 mEq/L (-3 to +3); BICARBONATE 28.7 mEq/L (22-26); CARBOXY HGB 1.8 % (0-5); COMMENTS - BLOOD GASES C+A+; DEVICE VENT; FI02 80 %; MECHANICAL RATE 14 resp/min; MODE AC; O2 SATURATION (CALCULATED) 98.2 % (95-99); PCO2 52 mm Hg (35-45); PEEP 10 CM/H20; PO2 98 mm Hg (80-100); SITE RR; TIDAL VOLUME 400 ML; TOTAL RESP RATE 14 resp/min; pH 7.35 (7.35-7.45)
[2017-10-12 06:42] LABS: HEMATOCRIT 35.6 % (36.0-46.0); HEMOGLOBIN 10.7 G/DL (11.9-15.5); MCH 29.3 PG (29.0-34.0); MCHC 30.1 G/DL (30.0-36.0); MCV 97.5 FL (83-99); PLATELET COUNT 116 K/uL (156-360); RBC DIS.WIDTH-CV 14.6 % (11.8-14.6); RBC DIS.WIDTH-SD 52.8 % (39-53); RED BLOOD COUNT 3.65 M/uL (3.80-5.20); WHITE BLOOD COUNT 9.9 K/uL (4.1-10.2)
[2017-10-12 07:06] LABS: TROP-I INTERPRETATION POSITIVE; TROPONIN-I 3.54 ng/mL (0.0-0.30)
[2017-10-12 08:18] LABS: ALBUMIN 2.9 G/DL (3.2-4.8); CHLORIDE 105 MEQ/L (99-109); DIRECT BILIRUBIN 0.1 mg/dL (0.0-0.3); MAGNESIUM 1.7 mg/dl (1.3-2.7); POTASSIUM 4.7 MEQ/L (3.7-5.4); SODIUM 144 MEQ/L (136-147); TOTAL BILIRUBIN 0.5 MG/DL (0.0-1.0)
[2017-10-12 08:24] LABS: ALKALINE PHOSPHATASE 73 IU/L (3-129); ALT (GPT) 22 IU/L (3-49); AST (GOT) 50 IU/L (2-34); CREATININE 1.1 MG/DL (0.6-1.3); GFR ESTIMATE (CALCULATED) 50 mL/min/; GLUCOSE 112 mg/dL (70-99); PHOSPHORUS 3.3 mg/dL (2.5-4.9); TOTAL PROTEIN 5.1 G/DL (6.4-8.3); UREA NITROGEN (BUN) 21 mg/dL (9-23)
[2017-10-12 12:50] LABS: TROP-I INTERPRETATION POSITIVE; TROPONIN-I 2.52 ng/mL (0.0-0.30)
[2017-10-12 20:01] LABS: TROP-I INTERPRETATION POSITIVE
[2017-10-12 20:02] LABS: TROPONIN-I 1.25 ng/mL (0.0-0.30)
[2017-10-13] VITALS (23 sets, daily range): BP systolic 75–168; BP diastolic 48–125
[2017-10-13 05:31] LABS: HEMATOCRIT 32.1 % (36.0-46.0); HEMOGLOBIN 9.9 G/DL (11.9-15.5); MCH 29.5 PG (29.0-34.0); MCHC 30.8 G/DL (30.0-36.0); MCV 95.5 FL (83-99); PLATELET COUNT 94 K/uL (156-360); RBC DIS.WIDTH-CV 14.6 % (11.8-14.6); RBC DIS.WIDTH-SD 50.8 % (39-53); RED BLOOD COUNT 3.36 M/uL (3.80-5.20); WHITE BLOOD COUNT 7.3 K/uL (4.1-10.2)
[2017-10-13 06:02] LABS: CHLORIDE 101 MEQ/L (99-109); CREATININE 1.1 MG/DL (0.6-1.3); GFR ESTIMATE (CALCULATED) 50 mL/min/; GLUCOSE 101 mg/dL (70-99); MAGNESIUM 1.8 mg/dl (1.3-2.7); PHOSPHORUS 2.9 mg/dL (2.5-4.9); POTASSIUM 3.8 MEQ/L (3.7-5.4); SODIUM 141 MEQ/L (136-147); UREA NITROGEN (BUN) 24 mg/dL (9-23)
[2017-10-13 09:36] LABS: INTER. NORMALIZED RATIO 1.2
[2017-10-13 09:39] LABS: PTT 31.3 SEC (25-37)
[2017-10-13 11:06] LABS: HEMOGLOBIN A1c (GLYCOHEMOGLOB) 5.3 % (Below 5.7)
[2017-10-13 18:50] LABS: INTER. NORMALIZED RATIO 1.6
[2017-10-13 19:10] LABS: PTT ND SEC (25-37)
[2017-10-14] VITALS (19 sets, daily range): BP systolic 100–157; BP diastolic 52–92
[2017-10-14 07:05] LABS: HEMATOCRIT 33.6 % (36.0-46.0); HEMOGLOBIN 10.2 G/DL (11.9-15.5); MCH 29.3 PG (29.0-34.0); MCHC 30.4 G/DL (30.0-36.0); MCV 96.6 FL (83-99); PLATELET COUNT 110 K/uL (156-360); RBC DIS.WIDTH-CV 14.5 % (11.8-14.6); RED BLOOD COUNT 3.48 M/uL (3.80-5.20); WHITE BLOOD COUNT 7.1 K/uL (4.1-10.2)
[2017-10-14 08:01] LABS: CHLORIDE 102 MEQ/L (99-109); CREATININE 0.9 MG/DL (0.6-1.3); GFR ESTIMATE (CALCULATED) > 59 mL/min/; GLUCOSE 126 mg/dL (70-99); PHOSPHORUS 2.9 mg/dL (2.5-4.9); POTASSIUM 3.8 MEQ/L (3.7-5.4); SODIUM 140 MEQ/L (136-147); UREA NITROGEN (BUN) 20 mg/dL (9-23)
[2017-10-15] VITALS (8 sets, daily range): BP systolic 90–143; BP diastolic 32–78
[2017-10-15 05:28] LABS: HEMOGLOBIN 9.8 G/DL (11.9-15.5); MCH 29.2 PG (29.0-34.0); MCHC 29.7 G/DL (30.0-36.0); MCV 98.2 FL (83-99); PLATELET COUNT 100 K/uL (156-360); RBC DIS.WIDTH-SD 50.8 % (39-53); RED BLOOD COUNT 3.36 M/uL (3.80-5.20); WHITE BLOOD COUNT 6.4 K/uL (4.1-10.2)
[2017-10-15 05:57] LABS: CHLORIDE 100 MEQ/L (99-109); CREATININE 0.8 MG/DL (0.6-1.3); GFR ESTIMATE (CALCULATED) > 59 mL/min/; MAGNESIUM 2.1 mg/dl (1.3-2.7); POTASSIUM 4.1 MEQ/L (3.7-5.4); SODIUM 143 MEQ/L (136-147); UREA NITROGEN (BUN) 16 mg/dL (9-23)
[2017-10-15 06:12] LABS: GLUCOSE 88 mg/dL (70-99)
[2017-10-16 03:42] VITALS: BP 147/72
[2017-10-16 06:16] LABS: HEMATOCRIT 34.8 % (36.0-46.0); HEMOGLOBIN 10.5 G/DL (11.9-15.5); MCH 29.6 PG (29.0-34.0); MCHC 30.2 G/DL (30.0-36.0); PLATELET COUNT 119 K/uL (156-360); RBC DIS.WIDTH-CV 13.8 % (11.8-14.6); RBC DIS.WIDTH-SD 49.5 % (39-53); RED BLOOD COUNT 3.55 M/uL (3.80-5.20); WHITE BLOOD COUNT 4.8 K/uL (4.1-10.2)
[2017-10-16 06:58] LABS: CHLORIDE 98 MEQ/L (99-109); CREATININE 0.8 MG/DL (0.6-1.3); GFR ESTIMATE (CALCULATED) > 59 mL/min/; GLUCOSE 96 mg/dL (70-99); PHOSPHORUS 3.4 mg/dL (2.5-4.9); POTASSIUM 3.8 MEQ/L (3.7-5.4); SODIUM 142 MEQ/L (136-147); UREA NITROGEN (BUN) 17 mg/dL (9-23)
[2017-10-16 07:59] VITALS: BP 127/69
[2017-10-16 11:09] VITALS: BP 131/72
[2017-10-16 15:35] VITALS: BP 129/74
[2017-10-16 19:38] VITALS: BP 153/71
[2017-10-17 03:57] VITALS: BP 137/85
[2017-10-17 06:15] LABS: HEMATOCRIT 32.6 % (36.0-46.0); HEMOGLOBIN 9.8 G/DL (11.9-15.5); MCH 29.5 PG (29.0-34.0); MCHC 30.1 G/DL (30.0-36.0); MCV 98.2 FL (83-99); PLATELET COUNT 119 K/uL (156-360); RBC DIS.WIDTH-CV 13.7 % (11.8-14.6); RBC DIS.WIDTH-SD 49.1 % (39-53); RED BLOOD COUNT 3.32 M/uL (3.80-5.20); WHITE BLOOD COUNT 4.6 K/uL (4.1-10.2)
[2017-10-17 06:40] LABS: CHLORIDE 98 MEQ/L (99-109); CREATININE 0.8 MG/DL (0.6-1.3); GFR ESTIMATE (CALCULATED) > 59 mL/min/; GLUCOSE 107 mg/dL (70-99); POTASSIUM 4.2 MEQ/L (3.7-5.4); SODIUM 142 MEQ/L (136-147); UREA NITROGEN (BUN) 16 mg/dL (9-23)
[2017-10-17 08:00] VITALS: BP 127/83
[2017-10-17 12:19] VITALS: BP 139/76
[2017-10-17 20:09] VITALS: BP 119/74
[2017-10-17 23:02] VITALS: BP 127/60
[2017-10-18 03:23] VITALS: BP 128/77
[2017-10-18 07:29] VITALS: BP 115/83
[2017-10-18 08:46] LABS: HEMATOCRIT 35.2 % (36.0-46.0); HEMOGLOBIN 10.8 G/DL (11.9-15.5); MCH 29.3 PG (29.0-34.0); MCHC 30.7 G/DL (30.0-36.0); MCV 95.7 FL (83-99); PLATELET COUNT 142 K/uL (156-360); RBC DIS.WIDTH-CV 13.6 % (11.8-14.6); RBC DIS.WIDTH-SD 47.9 % (39-53); RED BLOOD COUNT 3.68 M/uL (3.80-5.20); WHITE BLOOD COUNT 6.7 K/uL (4.1-10.2)
[2017-10-18 09:09] LABS: CHLORIDE 95 MEQ/L (99-109); CREATININE 0.7 MG/DL (0.6-1.3); GFR ESTIMATE (CALCULATED) > 59 mL/min/; GLUCOSE 141 mg/dL (70-99); MAGNESIUM 1.8 mg/dl (1.3-2.7); PHOSPHORUS 3.2 mg/dL (2.5-4.9); SODIUM 141 MEQ/L (136-147); UREA NITROGEN (BUN) 16 mg/dL (9-23)
[2017-10-18 11:15] VITALS: BP 124/78
[2017-10-18 16:20] VITALS: BP 120/80
[2017-10-18 21:23] VITALS: BP 120/78
[2017-10-18 23:58] VITALS: BP 134/81
[2017-10-19 06:32] LABS: HEMATOCRIT 35.6 % (36.0-46.0); HEMOGLOBIN 10.7 G/DL (11.9-15.5); MCH 28.8 PG (29.0-34.0); MCHC 30.1 G/DL (30.0-36.0); PLATELET COUNT 154 K/uL (156-360); RBC DIS.WIDTH-CV 13.7 % (11.8-14.6); RBC DIS.WIDTH-SD 48.1 % (39-53); RED BLOOD COUNT 3.71 M/uL (3.80-5.20); WHITE BLOOD COUNT 5.7 K/uL (4.1-10.2)
[2017-10-19 06:52] LABS: CHLORIDE 95 MEQ/L (99-109); CREATININE 0.8 MG/DL (0.6-1.3); GFR ESTIMATE (CALCULATED) > 59 mL/min/; GLUCOSE 137 mg/dL (70-99); MAGNESIUM 1.9 mg/dl (1.3-2.7); POTASSIUM 4.4 MEQ/L (3.7-5.4); SODIUM 145 MEQ/L (136-147); UREA NITROGEN (BUN) 20 mg/dL (9-23)
[2017-10-19 07:03] LABS: CARBON DIOXIDE (BICARBONATE) > 40.0 MEQ/L (20-31)
[2017-10-19 08:03] VITALS: BP 138/74
[2017-10-19 16:53] VITALS: BP 140/78
[2017-10-19 23:19] VITALS: BP 94/67
[2017-10-20 06:48] LABS: HEMATOCRIT 33.1 % (36.0-46.0); HEMOGLOBIN 10.3 G/DL (11.9-15.5); MCH 29.6 PG (29.0-34.0); MCHC 31.1 G/DL (30.0-36.0); MCV 95.1 FL (83-99); PLATELET COUNT 147 K/uL (156-360); RBC DIS.WIDTH-SD 48.4 % (39-53); RED BLOOD COUNT 3.48 M/uL (3.80-5.20); WHITE BLOOD COUNT 5.7 K/uL (4.1-10.2)
[2017-10-20 07:35] LABS: CHLORIDE 95 MEQ/L (99-109); CREATININE 0.8 MG/DL (0.6-1.3); GFR ESTIMATE (CALCULATED) > 59 mL/min/; GLUCOSE 120 mg/dL (70-99); POTASSIUM 4.6 MEQ/L (3.7-5.4); SODIUM 139 MEQ/L (136-147); UREA NITROGEN (BUN) 21 mg/dL (9-23)
[2017-10-20 08:25] VITALS: BP 140/65
[2017-10-20 11:10] VITALS: BP 143/64
[2017-10-20] MEDS ORDERED: SPIRIVA RESPIMAT4 GM IH (11:14)
[2017-10-20] MEDS ORDERED: DUONEB 2.5-0.5 M3 ML AEROSOL (11:15)
[2017-10-20] MEDS ORDERED: SPIRONOLACTONE50 MG PO (11:15)
[2017-10-20] MEDS ORDERED: NIFEDIPINE ER60 MG PO (11:15)
[2017-10-20] MEDS ORDERED: FUROSEMIDE20 MG PO (11:16)
[2017-10-20] MEDS ORDERED: PREDNISONE10 MG PO (11:19)
== END 2017-10-20 14:15 | DRG 208 ==
LOC: EME 18:27 → 4WEST 21:21 → EDOF 21:21 → ENRESERV 21:22 → 4WEST 23:32 → ENRESERV 10-15 13:55 → 5EAST 10-15 16:56
PROVIDERS: Emergency Medicine; Internal Medicine; Internal Medicine Critical Care Medicine; Physician Assistant
PROC: 0BH18EZ Insertion of Endotracheal Airway into Trachea, Via Natural or Artificial Opening Endoscopic (ICD-10-PCS; principal; 2017-10-11)
PROC: 5A1945Z Respiratory Ventilation, 24-96 Consecutive Hours (ICD-10-PCS; principal; 2017-10-11)
DX: J96.01 Acute respiratory failure with hypoxia (principal); R57.9 Shock, unspecified; J44.1 Chronic obstructive pulmonary disease with (acute) exacerbation; I48.0 Paroxysmal atrial fibrillation; I11.0 Hypertensive heart disease with heart failure; I25.10 Atherosclerotic heart disease of native coronary artery without angina pectoris; L97.419 Non-pressure chronic ulcer of right heel and midfoot with unspecified severity; I27.20 Pulmonary hypertension, unspecified; E78.5 Hyperlipidemia, unspecified; G47.33 Obstructive sleep apnea (adult) (pediatric); F32.9 Major depressive disorder, single episode, unspecified; Z96.611 Presence of right artificial shoulder joint; F41.0 Panic disorder [episodic paroxysmal anxiety]; Z96.651 Presence of right artificial knee joint; R04.2 Hemoptysis; E66.9 Obesity, unspecified; Z66 Do not resuscitate; R79.1 Abnormal coagulation profile; Z91.19 Patient's noncompliance with other medical treatment and regimen; Z99.81 Dependence on supplemental oxygen; G25.81 Restless legs syndrome; I50.9 Heart failure, unspecified; D69.6 Thrombocytopenia, unspecified; Z86.73 Personal history of transient ischemic attack (TIA), and cerebral infarction without residual deficits; Z79.82 Long term (current) use of aspirin; L97.409 Non-pressure chronic ulcer of unspecified heel and midfoot with unspecified severity; J18.9 Pneumonia, unspecified organism; G89.29 Other chronic pain; I48.2 Chronic atrial fibrillation; I25.2 Old myocardial infarction; R06.82 Tachypnea, not elsewhere classified; Z68.41 Body mass index [BMI] 40.0-44.9, adult; Z74.01 Bed confinement status; Z90.710 Acquired absence of both cervix and uterus; Z95.5 Presence of coronary angioplasty implant and graft; E87.70 Fluid overload, unspecified
CPT/HCPCS: 36600; 71045; 71275; 72131; 73501; 73502; 76705; 80048; 80048 91; 80076; 81003; 82803; 82948; 83036; 83605; 83735; 83880; 84100; 84132 91; 84145 90; 84484; 85025; 85025 91; 85027; 85379; 85610; 85730; 87040; 87070; 87205; 87641; 92526 GN; 92610 GN; 93005; 93306; 93931; 93970; 94002; 94003; 94640; 94660; 94799; 97530 GO; 99281; 99285; J0456; J0696; J1160; J1644; J1885; J1940; J2405; J3010; J7030; J7050; J7512; P9045; S0028

== ENCOUNTER 2017-12-01 20:08 | Emergency (ER) | payer OTHER ==
[~2017-12-01] VITALS: Ht 137.2 cm; Wt 80.0 kg
[~2017-12-01 20:08] MED LIST changes: +BUSPAR5 MG PO; +DUONEB 2.5-0.5 M3 ML AEROSOL; +MIRALAX119 GM PO; +NIFEDIPINE ER60 MG PO; +PREDNISONE10 MG PO; +SPIRIVA RESPIMAT4 GM IH; +SPIRONOLACTONE50 MG PO
[2017-12-01] MEDS ORDERED: PERCOCET 5/31 TABLET PO (22:36)
[2017-12-01 22:57] VITALS: BP 129/80
== END 2017-12-01 23:26 ==
LOC: EME → EDBD 20:08 → EME 20:08
DX: S42.292A Other displaced fracture of upper end of left humerus, initial encounter for closed fracture (principal); S42.192A Fracture of other part of scapula, left shoulder, initial encounter for closed fracture; W19.XXXA Unspecified fall, initial encounter; Y93.89 Activity, other specified; Y92.129 Unspecified place in nursing home as the place of occurrence of the external cause; I10 Essential (primary) hypertension; E78.5 Hyperlipidemia, unspecified; J45.909 Unspecified asthma, uncomplicated; J43.9 Emphysema, unspecified; G25.81 Restless legs syndrome; G43.909 Migraine, unspecified, not intractable, without status migrainosus; G47.33 Obstructive sleep apnea (adult) (pediatric); F41.9 Anxiety disorder, unspecified; F32.9 Major depressive disorder, single episode, unspecified; I25.2 Old myocardial infarction; Z79.82 Long term (current) use of aspirin; Z91.81 History of falling; Z96.611 Presence of right artificial shoulder joint; Z96.651 Presence of right artificial knee joint; Z95.5 Presence of coronary angioplasty implant and graft; Z87.19 Personal history of other diseases of the digestive system; Z86.73 Personal history of transient ischemic attack (TIA), and cerebral infarction without residual deficits; Z90.710 Acquired absence of both cervix and uterus; Z88.1 Allergy status to other antibiotic agents; Z88.5 Allergy status to narcotic agent; Z88.8 Allergy status to other drugs, medicaments and biological substances; Z91.030 Bee allergy status
CPT/HCPCS: 73030; 73060; 99281; 99284